=== PATIENT | male | born 1950 | race Caucasian/White ===

== ENCOUNTER 2018-04-29 18:56 | Inpatient (IN) | payer MEDICARE, OTHER ==
--- NOTE | 2018-04-29 22:02 | ULT ---
BILATERAL LOWER EXTREMITY VENOUS DUPLEX EXAM: 04/29/18 HISTORY: Bilateral lower extremity edema and redness. Real time color doppler evaluation of the right and left lower extremity was performed from groin to calf. This includes evaluation of the common femoral, superficial and profunda femoral, saphenous, po pliteal and trifurcation veins. This shows patent deep venous systems bilaterally. There is normal compressibility and augmentation. IMPRESSION: No evidence of DVT of either lower extremity. POS: MARY CARMEN
[2018-04-29] MEDS ORDERED: Piperacillin/Tazobactam 4.5 GM VIAL ONE (22:14)
[2018-04-29] MEDS ORDERED: Clindamycin/D5W 900 mg/50 ml Premix Bag ONE (22:14)
[2018-04-29] MEDS ORDERED: Sodium Chloride 0.9% 100 ML ONE (22:14)
[2018-04-29] MEDS ORDERED: Vancomycin HCl 1.5 GM in Sodium Chloride 0.9% 250 ML 300 ML IVPB SCH (22:15)
[2018-04-29 22:24] LABS: #Basophils 0.1 thou/uL (0.0-0.2); #Eosinphils 0.3 thou/uL (0.0-0.7); #Lymphocytes 1.5 thou/uL (1.20-3.40); #Monocytes 0.6 thou/uL (0.11-0.59); #Neutrophils 4.9 thou/uL (1.40-6.50); %Basophils 0.8 % (0.0-1.0); %Eosinophils 3.8 % (0.0-10.0); %Lymphocytes 20.6 % (21.0-51.0); %Monocytes 8.5 % (0.0-10.0); %Neutrophils 66.3 % (42.0-75.0); Hemoglobin 13.3 g/dL (14.0-18.0); Mean Corpuscular HGB CONC 33.3 g/dL (32.0-36.0); Mean Corpuscular Hemoglobin 29.1 pg (27.0-31.0); Mean Corpuscular Volume 87.4 fL (78.0-98.0); Mean Platelet Volume 6.9 fL (7.4-10.4); Platelet Count 237 thou/uL (130-400); RBC Distribution Width 13.2 % (11.5-14.5); Red Blood Cell (RBC) Count 4.57 mill/uL (4.70-6.10); White Blood Cell (WBC) Count 7.3 thou/uL (4.8-10.8)
[2018-04-29 22:44] LABS: ALT (SGPT) 12 U/L (8-55); AST (SGOT) 16 U/L (5-34); Albumin 4.7 g/dL (3.4-4.8); Alkaline Phosphatase 50 U/L (40-150); Anion Gap 15 mmol/L (10-20); BUN (Urea Nitrogen) 17 mg/dL (8.4-25.7); Bilirubin, Total 0.7 mg/dL (0.2-1.2); CK (CPK) 105 U/L (30-200); Calc. Creatinine Clearance 0 mL/min (70-130); Calcium 9.8 mg/dL (7.8-10.44); Carbon Dioxide 25 mmol/L (23-31); Chloride 103 mmol/L (98-107); Estimated GFR-MDRD Greater than 90; Globulin 2.4 g/dL (2.4-3.5); Glucose 120 mg/dL (80-115); Potassium 3.7 mmol/L (3.5-5.1); Protein, Total 7.1 g/dL (5.8-8.1); Sodium 139 mmol/L (136-145)
[2018-04-29 22:49] LABS: CKMB 1.7 ng/mL (0-6.6); Troponin I Less than 0.010 ng/mL (< 0.028)
[2018-04-30] MEDS ORDERED: Acetaminophen 325 MG TAB PO PRN ×2 (00:54→02:37)
[2018-04-30] MEDS ORDERED: Ondansetron HCl/PF 4 MG/2 ML Vial IVP PRN ×3 (00:54→02:37)
[2018-04-30] MEDS ORDERED: Ondansetron ODT 4 MG TAB SL PRN (00:54)
[2018-04-30 01:14] VITALS: BMI 31.1
[2018-04-30] MEDS: Sodium Chloride 0.9% 1,000 ML IV SCH ×2 (01:57→08:25)
[2018-04-30] MEDS ORDERED: HumaLOG 300 UNITS/3 ML VIAL SC PRN (02:02)
[2018-04-30] MEDS ORDERED: Dextrose 50% Abboject 50 ML SYRINGE SLOW IVP PRN (02:02)
[2018-04-30] MEDS ORDERED: Dextrose 5% in Water 1,000 ML IV PRN (02:02)
[2018-04-30] MEDS ORDERED: Nitroglycerin 0.4 MG TAB (25 Tab Bottle) SL PRN (02:37)
[2018-04-30] MEDS ORDERED: Benzonatate 100 MG CAP PO PRN (02:37)
[2018-04-30] MEDS ORDERED: traMADol HCl 50 MG TAB PO PRN (02:37)
[2018-04-30] MEDS ORDERED: cloNIDine 0.1 MG TAB PO PRN (02:37)
[2018-04-30] MEDS ORDERED: Mag-Al 1200 mg/1200 mg/30 ML UDCUP PO PRN (02:37)
[2018-04-30] MEDS ORDERED: Loratadine 10 MG TAB PO PRN (02:37)
[2018-04-30] MEDS ORDERED: Diabetic Tussin 200 MG/10 ML UDCUP PO PRN (02:37)
[2018-04-30] MEDS ORDERED: Bisacodyl 5 MG TAB PO PRN (02:37)
[2018-04-30] MEDS ORDERED: Senokot 8.6 MG TAB PO PRN (02:37)
[2018-04-30] MEDS ORDERED: Calcium Carbonate 500 MG ChewTAB PO PRN (02:37)
[2018-04-30] MEDS ORDERED: hydrALAZINE 20 MG/ML VIAL SLOW IVP PRN (02:37)
[2018-04-30 02:39] LABS: Lactic Acid 2.6 mmol/L (0.5-2.2)
--- NOTE | 2018-04-30 03:30 | HP ---
DATE OF ADMISSION: 04/30/2018 CHIEF COMPLAINT: Bilateral lower extremity rash and swelling. PRIMARY CARE PHYSICIAN: Gerardo Ridley M.D. HISTORY OF PRESENT ILLNESS: Mr. Lassiter is a very pleasant 68-year-old male with past medical histo ry of diabetes, hypertension, and dyslipidemia who presented to the emergency room with the above-men tioned complaint. History is mainly obtained by the patient himself and case has been discussed with admitting ER physician, Dr. Davis. The electronic medical records have been reviewed. The patient was last admitted in our facility in 05/2017 when he underwent a right total knee replacement Mr. Lassiter reports that he has been noticing bilateral lower extremity rash and swelling for the la st 2 weeks. He initially ignored it, but eventually presented to his primary care physician when the symptoms did not go away. It is itchy rash and has been spreading upwards from his feet. He was pr escribed doxycycline about a week ago and he took about 3 days of it, but the symptoms continued to g et worse, so he presented to the ER. In the emergency room, he was hemodynamically stable with a blood pressure of 152/79, pulse of 95, an d afebrile. His examination was consistent with significant bilateral lower extremity cellulitis and pitting edema. A lower extremity ultrasound was done which was negative for any DVT. He was diagno sed with cellulitis and was given clindamycin, vancomycin and Zosyn and is now being admitted for fur ther workup and care. He is otherwise hemodynamically stable and has no evidence of sepsis. PAST MEDICAL HISTORY: 1. Diabetes mellitus, noninsulin dependent. 2. Hypertension. 3. Dyslipidemia. 4. Benign prostatic hypertrophy. PAST SURGICAL HISTORY: 1. Bilateral inguinal hernia repair. 2. Bilateral cataract surgery. 3. Right total knee replacement in 05/2017. ALLERGIES: No known medication allergies. 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 He chews tobacco, but denies any alcohol or drug abuse. FAMILY HISTORY: Significant for diabetes in multiple family members. CURRENT MEDICATIONS: Januvia 50 mg daily, metformin 500 mg p.o. b.i.d., Flomax 0.4 mg daily, finaste ride 5 mg daily, benazepril/hydrochlorothiazide 20/12.5 mg daily, Lipitor 5 mg daily, aspirin 81 mg d aily, and amlodipine 10 mg daily. REVIEW OF SYSTEMS: Twelve-point review of systems was done and is negative except for those mentione d in the history and physical. LABORATORY DATA: CBC shows hemoglobin of 13.3, otherwise unremarkable. Serum chemistries unremarkab le. Blood sugar 120. Lactic acid 2.2. Cardiac enzymes and BNP normal. Lower extremity ultrasound is negative for any DVT bilaterally. PHYSICAL EXAMINATION: VITAL SIGNS: Most recent vital signs, temperature 97.9, pulse of 65, respirations 18, saturating 98% on room air, blood pressure 102/63. GENERAL: No acute distress, awake, alert, and oriented x3, very pleasant. HEENT: Mucous membrane is moist and pink. No oropharyngeal exudate or erythema. Head is normocepha lic, atraumatic. Pupils equal, reactive to light and accommodation. Extraocular movement intact. NECK: Neck is supple without any lymphadenopathy, JVD or bruit. CHEST: Clear to auscultation without any wheezing, rales or rhonchi. CARDIOVASCULAR: Rate and rhythm is regular without any murmurs, rubs, or gallops. ABDOMEN: Soft, nontender, nondistended, positive bowel sounds. EXTREMITIES: Extremities showed diffuse pitting edema extending mainly from his feet up words to the mid bailey. He has extensive maculopapular confluent rash involving the whole circumference of both l egs extending from just inside his toes to all the way almost up to his knees. It is warm to touch. He is nontender to palpation in his legs. Proximal streaking is noticed. NEUROLOGIC: Nonfocal. SKIN: As above in the bilateral lower extremities. Otherwise, negative for any other rash or bruise s. PSYCHIATRIC: Normal affect. IMPRESSION AND PLAN: 1. Bilateral lower extremity cellulitis. The patient has failed outpatient oral antibiotic therapy. He currently is not showing any signs and symptoms of sepsis, but worsening cellulitis. There is n o evidence of deep venous thrombosis. He will be admitted for IV antibiotic therapy. We will contin ue the vancomycin and Zosyn that he has received in the emergency room. Blood cultures have been obt ained and we will follow the results. He will approximately need IV antibiotics for at least 2-3 day s. Monitor clinical progress. 2. Diabetes mellitus type 2. We will hold the metformin for now and put him on insulin sliding scal e with frequent Accu-Cheks. A 2000 calorie ADA diet will be started as well. 3. History of hypertension. Resume his amlodipine, hydrochlorothiazide and benazepril. 4. History of dyslipidemia. We will restart his Lipitor. 5. Benign prostatic hypertrophy. Restart his Flomax and finasteride. 6. Code status: FULL CODE. Discussed with the patient. 7. Deep venous thrombosis and gastrointestinal prophylaxis. DISPOSITION: Mr. Lassiter is currently being admitted to the hospital with bilateral lower extremity cellulitis in a diabetic patient with failed outpatient antibiotic oral therapy. Estimated length o f stay at least 2-3 midnight. Further management will depend upon his clinical course.
[2018-04-30] MEDS ORDERED: Piperacillin/Tazobactam 4.5 GM in Sodium Chloride 0.9% 100 ML IVPB SCH (04:00)
[2018-04-30] MEDS: Piperacillin/Tazobactam 3.375 GM in Sodium Chloride 0.9% 100 ML IVPB SCH ×3 (05:38→17:38)
[2018-04-30] MEDS ORDERED: Clindamycin/D5W 900 MG in Premix Bag 1 BAG IVPB SCH (06:00)
[2018-04-30] MEDS: Tamsulosin HCl 0.4 MG CAP PO SCH (08:25)
[2018-04-30] MEDS: Alogliptin 6.25 MG TAB PO SCH (08:25)
[2018-04-30] MEDS: Enoxaparin Sodium 40 MG/0.4 ML SYRINGE SC SCH (08:25)
[2018-04-30] MEDS: Amlodipine 10 MG TAB PO SCH (08:26)
[2018-04-30] MEDS: Famotidine 20 MG TAB PO SCH ×2 (08:26→21:03)
[2018-04-30] MEDS: Atorvastatin Calcium 10 MG TAB PO SCH (08:26)
[2018-04-30] MEDS: Aspirin 81 mg Enteric Coated Tablet PO SCH (08:26)
[2018-04-30] MEDS: Finasteride 5 MG TAB PO SCH (08:26)
[2018-04-30] MEDS: Hydrochlorothiazide 25 MG TAB PO SCH (08:27)
[2018-04-30] MEDS ORDERED: Non-Formulary Item 1 EACH (Benazepril/Hydrochlorothiazide [Benazepril-Hctz 20-12.5 Mg Tab PO SCH (09:00)
[2018-04-30] MEDS: Vancomycin HCl 1.5 GM in Sodium Chloride 0.9% 250 ML 300 ML IVPB SCH ×2 (10:54→23:20)
[2018-04-30] MEDS ORDERED: Vancomycin HCl 1.5 GM in Sodium Chloride 0.9% 250 ML 300 ML IVPB SCH (11:00)
[2018-04-30] MEDS: HumaLOG 300 UNITS/3 ML VIAL SC PRN (13:20)
[2018-05-01] MEDS: Piperacillin/Tazobactam 3.375 GM in Sodium Chloride 0.9% 100 ML IVPB SCH ×4 (00:17→17:47)
[2018-05-01] MEDS ORDERED: Prevnar 13-Val Conj/PF 0.5 ML SYRINGE IM ONE (09:00)
[2018-05-01] MEDS: Atorvastatin Calcium 10 MG TAB PO SCH (09:14)
[2018-05-01] MEDS: Tamsulosin HCl 0.4 MG CAP PO SCH (09:14)
[2018-05-01] MEDS: Finasteride 5 MG TAB PO SCH (09:15)
[2018-05-01] MEDS: Hydrochlorothiazide 25 MG TAB PO SCH (09:16)
[2018-05-01] MEDS: Famotidine 20 MG TAB PO SCH ×2 (09:16→20:30)
[2018-05-01] MEDS: Alogliptin 6.25 MG TAB PO SCH (09:16)
[2018-05-01] MEDS: Amlodipine 10 MG TAB PO SCH (09:16)
[2018-05-01] MEDS: Aspirin 81 mg Enteric Coated Tablet PO SCH (09:16)
[2018-05-01] MEDS: Enoxaparin Sodium 40 MG/0.4 ML SYRINGE SC SCH (09:19)
[2018-05-01] MEDS: Vancomycin HCl 1.5 GM in Sodium Chloride 0.9% 250 ML 300 ML IVPB SCH (11:17)
[2018-05-01] MEDS: HumaLOG 300 UNITS/3 ML VIAL SC PRN (17:47)
--- NOTE | 2018-05-01 21:02 | PDOC.PN ---
- Subjective Encounter Start Date: 05/01/18 Encounter Start Time: 11:30 Subjective: pt up in bed no complains - Objective Vital Signs & Weight: Vital Signs (12 hours) Temp Pulse Resp BP BP BP Pulse Ox 05/01/18 20:00 97.9 F 75 18 108/72 93 L 05/01/18 12:04 98.4 F 61 16 123/80 94 L 05/01/18 09:16 66 119/67 05/01/18 09:15 119/76 Weight Weight 211 lb I&O: 04/30/18 05/01/18 05/02/18 06:59 06:59 06:59 Intake Total 575 1164 Balance 575 1164 Result Diagrams: 04/29/18 22:15 04/29/18 22:15 Additional Labs: Accuchecks 05/01/18 05/01/18 05/01/18 16:14 11:51 05:22 POC Glucose 192 H 139 H 123 H 04/30/18 20:29 POC Glucose 139 H Phys Exam - Physical Examination HEENT: PERRLA, moist MMs, sclera anicteric, TM's clear, oral pharynx no lesions , 2+ tonsils Neck: no nodes, no JVD, supple, full ROM Respiratory: no wheezing, no rales, no rhonchi, wheezing present, clear to auscultation bilateral Cardiovascular: RRR, no significant murmur, no rub, gallop, irregular Gastrointestinal: soft, non-tender, no distention, positive bowel sounds mild lower ext edema Dx/Plan (1) Bilateral lower leg cellulitis Code(s): L03.116 - CELLULITIS OF LEFT LOWER LIMB; L03.115 - CELLULITIS OF RIGHT LOWER LIMB Status: Acute (2) Anemia, normocytic normochromic Code(s): D64.9 - ANEMIA, UNSPECIFIED Status: Chronic (3) DM type 2 (diabetes mellitus, type 2) Status: Chronic - Plan will change abx to ceftriaxone -: will give one dose of lasix * . Review of Systems - Review of Systems ENT: negative: Ear Pain, Ear Discharge, Nose Pain, Nose Discharge, Nose Congestion, Mouth Pain, Mouth Swelling, Throat Pain, Throat Swelling, Other Respiratory: negative: Cough, Dry, Shortness of Breath, Hemoptysis, SOB with Excertion, Pleuritic Pain, Sputum, Wheezing Cardiovascular: negative: chest pain, palpitations, orthopnea, paroxysmal nocturnal dyspnea, edema, light headedness, other Gastrointestinal: negative: Nausea, Vomiting, Abdominal Pain, Diarrhea, Constipation, Melena, Hematochezia, Other - Medications/Allergies Allergies/Adverse Reactions: Allergies Allergy/AdvReac Type Severity Reaction Status Date / Time No Known Drug Allergies Allergy Verified 04/30/18 01:03 Medications: Current Medications Acetaminophen (Tylenol) 650 mg PO Q4H PRN PRN Reason: Headache/Fever or Pain Al Hydroxide/Mg Hydroxide (Maalox) 30 ml PO Q6H PRN PRN Reason: Heartburn or Indigestion Alogliptin Benzoate (Alogliptin) 12.5 mg PO DAILY [facility] Last Admin: 05/01/18 09:16 Dose: 12.5 mg Amlodipine Besylate (Norvasc) 10 mg PO DAILY [facility] Last Admin: 05/01/18 09:16 Dose: 10 mg Aspirin (Ecotrin) 81 mg PO DAILY [facility] Last Admin: 05/01/18 09:16 Dose: 81 mg Atorvastatin Calcium (Lipitor) 5 mg PO DAILY [facility] Last Admin: 05/01/18 09:14 Dose: 5 mg Benazepril HCl (Lotensin) 20 mg PO DAILY [facility] Last Admin: 05/01/18 09:15 Dose: 20 mg Benzonatate (Tessalon) 100 mg PO Q4H PRN PRN Reason: Cough Bisacodyl (Dulcolax) 10 mg PO DAILYPRN PRN PRN Reason: Constipation Calcium Carbonate (Tums) 1,000 mg PO Q4H PRN PRN Reason: Heartburn or Indigestion Clonidine (Catapres) 0.1 mg PO Q4H PRN PRN Reason: Systolic BP > 160 Dextrose/Water (Dextrose 50%) 25 gm SLOW IVP PRN PRN PRN Reason: Hypoglycemia Enoxaparin Sodium (Lovenox) 40 mg SC 0900 [facility] Last Admin: 05/01/18 09:19 Dose: 40 mg Famotidine (Pepcid) 20 mg PO BID [facility] Last Admin: 05/01/18 20:30 Dose: 20 mg Finasteride (Proscar) 5 mg PO DAILY [facility] Last Admin: 05/01/18 09:15 Dose: 5 mg Furosemide (Lasix) 40 mg SLOW IVP ONE [facility] Glucagon (Glucagon) 1 mg IM PRN PRN PRN Reason: Hypoglycemia Guaifenesin (Robitussin Sf) 200 mg PO Q4H PRN PRN Reason: Cough Hydralazine HCl (Apresoline) 10 mg SLOW IVP Q4H PRN PRN Reason: Systolic BP > 180 Hydrochlorothiazide (Hydrochlorothiazide) 12.5 mg PO DAILY [facility] Last Admin: 05/01/18 09:16 Dose: 12.5 mg Dextrose/Water (D5w) 1,000 mls @ 0 mls/hr IV .Q0M PRN; As Directed PRN Reason: Hypoglycemia Ceftriaxone Sodium 1 mg/ (Syringe) 0.01 mls @ 0 mls/hr IVPB Q24HR [facility] Insulin Human Lispro (Humalog) 0 units SC .MODERATE SLIDING SC PRN PRN Reason: Moderate Correctional Scale Last Admin: 05/01/18 17:47 Dose: 2 unit Insulin Human Lispro (Humalog) 0 units SC .BEDTIME SLIDING SC PRN PRN Reason: Bedtime Correctional Scale Loratadine (Claritin) 10 mg PO DAILYPRN PRN PRN Reason: Sinus Symptoms Miscellaneous Medication (Pharmacy To Dose) 0 each IVPB PRN PRN PRN Reason: [facility] Pharmacy to Dose Nitroglycerin (Nitrostat) 0.4 mg SL Q5MIN PRN PRN Reason: Chest Pain Ondansetron HCl (Zofran) 4 mg IVP Q6H PRN PRN Reason: Nausea/Vomiting Senna (Senokot) 2 tab PO HSPRN PRN PRN Reason: Constipation Sodium Chloride (Flush - Normal Saline) 10 ml IVF Q12HR [facility] Last Admin: 05/01/18 20:31 Dose: 10 ml Sodium Chloride (Flush - Normal Saline) 10 ml IVF PRN PRN PRN Reason: Saline Flush Tamsulosin HCl (Flomax) 0.4 mg PO DAILY [facility] Last Admin: 05/01/18 09:14 Dose: 0.4 mg Tramadol HCl (Ultram) 50 mg PO Q4H PRN PRN Reason: Moderate Pain (4-6) Triamcinolone Acetonide (Kenalog 0.1% Ointment) 0 gm TOP TID [facility] Last Admin: 05/01/18 20:31 Dose: 1 applic
--- NOTE | 2018-05-01 21:04 | PDOC.PN ---
- Subjective Encounter Start Date: 04/30/18 Encounter Start Time: 14:00 Subjective: pt up in chair no complains - Objective Vital Signs & Weight: Vital Signs (12 hours) Temp Pulse Resp BP BP BP Pulse Ox 05/01/18 20:00 97.9 F 75 18 108/72 93 L 05/01/18 12:04 98.4 F 61 16 123/80 94 L 05/01/18 09:16 66 119/67 05/01/18 09:15 119/76 Weight Weight 211 lb I&O: 04/30/18 05/01/18 05/02/18 06:59 06:59 06:59 Intake Total 575 1164 Balance 575 1164 Result Diagrams: 04/29/18 22:15 04/29/18 22:15 Additional Labs: Accuchecks 05/01/18 05/01/18 05/01/18 16:14 11:51 05:22 POC Glucose 192 H 139 H 123 H 04/30/18 20:29 POC Glucose 139 H Phys Exam - Physical Examination HEENT: PERRLA, moist MMs, sclera anicteric, TM's clear, oral pharynx no lesions , 2+ tonsils Neck: no nodes, no JVD, supple, full ROM Respiratory: no wheezing, no rales, no rhonchi, wheezing present, clear to auscultation bilateral Cardiovascular: RRR, no significant murmur, no rub, gallop, irregular Gastrointestinal: soft, non-tender, no distention, positive bowel sounds Musculoskeletal: edema present mild erythema to lower ext bilaterally Dx/Plan (1) Bilateral lower leg cellulitis Code(s): L03.116 - CELLULITIS OF LEFT LOWER LIMB; L03.115 - CELLULITIS OF RIGHT LOWER LIMB Status: Acute (2) Anemia, normocytic normochromic Code(s): D64.9 - ANEMIA, UNSPECIFIED Status: Chronic (3) DM type 2 (diabetes mellitus, type 2) Status: Chronic - Plan will continue abx for now -: continue sliding scale insulin * . Review of Systems - Review of Systems Respiratory: negative: Cough, Dry, Shortness of Breath, Hemoptysis, SOB with Excertion, Pleuritic Pain, Sputum, Wheezing Cardiovascular: negative: chest pain, palpitations, orthopnea, paroxysmal nocturnal dyspnea, edema, light headedness, other Gastrointestinal: negative: Nausea, Vomiting, Abdominal Pain, Diarrhea, Constipation, Melena, Hematochezia, Other - Medications/Allergies Allergies/Adverse Reactions: Allergies Allergy/AdvReac Type Severity Reaction Status Date / Time No Known Drug Allergies Allergy Verified 04/30/18 01:03 Medications: Current Medications Acetaminophen (Tylenol) 650 mg PO Q4H PRN PRN Reason: Headache/Fever or Pain Al Hydroxide/Mg Hydroxide (Maalox) 30 ml PO Q6H PRN PRN Reason: Heartburn or Indigestion Alogliptin Benzoate (Alogliptin) 12.5 mg PO DAILY [facility] Last Admin: 05/01/18 09:16 Dose: 12.5 mg Amlodipine Besylate (Norvasc) 10 mg PO DAILY [facility] Last Admin: 05/01/18 09:16 Dose: 10 mg Aspirin (Ecotrin) 81 mg PO DAILY [facility] Last Admin: 05/01/18 09:16 Dose: 81 mg Atorvastatin Calcium (Lipitor) 5 mg PO DAILY [facility] Last Admin: 05/01/18 09:14 Dose: 5 mg Benazepril HCl (Lotensin) 20 mg PO DAILY [facility] Last Admin: 05/01/18 09:15 Dose: 20 mg Benzonatate (Tessalon) 100 mg PO Q4H PRN PRN Reason: Cough Bisacodyl (Dulcolax) 10 mg PO DAILYPRN PRN PRN Reason: Constipation Calcium Carbonate (Tums) 1,000 mg PO Q4H PRN PRN Reason: Heartburn or Indigestion Clonidine (Catapres) 0.1 mg PO Q4H PRN PRN Reason: Systolic BP > 160 Dextrose/Water (Dextrose 50%) 25 gm SLOW IVP PRN PRN PRN Reason: Hypoglycemia Enoxaparin Sodium (Lovenox) 40 mg SC 0900 [facility] Last Admin: 05/01/18 09:19 Dose: 40 mg Famotidine (Pepcid) 20 mg PO BID [facility] Last Admin: 05/01/18 20:30 Dose: 20 mg Finasteride (Proscar) 5 mg PO DAILY [facility] Last Admin: 05/01/18 09:15 Dose: 5 mg Furosemide (Lasix) 40 mg SLOW IVP ONE [facility] Glucagon (Glucagon) 1 mg IM PRN PRN PRN Reason: Hypoglycemia Guaifenesin (Robitussin Sf) 200 mg PO Q4H PRN PRN Reason: Cough Hydralazine HCl (Apresoline) 10 mg SLOW IVP Q4H PRN PRN Reason: Systolic BP > 180 Hydrochlorothiazide (Hydrochlorothiazide) 12.5 mg PO DAILY [facility] Last Admin: 05/01/18 09:16 Dose: 12.5 mg Dextrose/Water (D5w) 1,000 mls @ 0 mls/hr IV .Q0M PRN; As Directed PRN Reason: Hypoglycemia Ceftriaxone Sodium 1 mg/ (Syringe) 0.01 mls @ 0 mls/hr IVPB Q24HR [facility] Insulin Human Lispro (Humalog) 0 units SC .MODERATE SLIDING SC PRN PRN Reason: Moderate Correctional Scale Last Admin: 05/01/18 17:47 Dose: 2 unit Insulin Human Lispro (Humalog) 0 units SC .BEDTIME SLIDING SC PRN PRN Reason: Bedtime Correctional Scale Loratadine (Claritin) 10 mg PO DAILYPRN PRN PRN Reason: Sinus Symptoms Miscellaneous Medication (Pharmacy To Dose) 0 each IVPB PRN PRN PRN Reason: [facility] Pharmacy to Dose Nitroglycerin (Nitrostat) 0.4 mg SL Q5MIN PRN PRN Reason: Chest Pain Ondansetron HCl (Zofran) 4 mg IVP Q6H PRN PRN Reason: Nausea/Vomiting Senna (Senokot) 2 tab PO HSPRN PRN PRN Reason: Constipation Sodium Chloride (Flush - Normal Saline) 10 ml IVF Q12HR [facility] Last Admin: 05/01/18 20:31 Dose: 10 ml Sodium Chloride (Flush - Normal Saline) 10 ml IVF PRN PRN PRN Reason: Saline Flush Tamsulosin HCl (Flomax) 0.4 mg PO DAILY [facility] Last Admin: 05/01/18 09:14 Dose: 0.4 mg Tramadol HCl (Ultram) 50 mg PO Q4H PRN PRN Reason: Moderate Pain (4-6) Triamcinolone Acetonide (Kenalog 0.1% Ointment) 0 gm TOP TID [facility] Last Admin: 05/01/18 20:31 Dose: 1 applic
[2018-05-01] MEDS ORDERED: cefTRIAXone\\ROCEPHIN 1 GM in Sodium Chloride 0.9% 100 ML IVPB SCH (22:00)
[2018-05-01 23:34] LABS: Vancomycin, Trough 15.6 ug/mL
[2018-05-02 05:04] LABS: #Basophils 0.1 thou/uL (0.0-0.2); #Eosinphils 0.9 thou/uL (0.0-0.7); #Lymphocytes 1.4 thou/uL (1.20-3.40); #Monocytes 0.6 thou/uL (0.11-0.59); #Neutrophils 3.7 thou/uL (1.40-6.50); %Basophils 0.9 % (0.0-1.0); %Eosinophils 13.4 % (0.0-10.0); %Lymphocytes 21.7 % (21.0-51.0); %Monocytes 8.6 % (0.0-10.0); %Neutrophils 55.4 % (42.0-75.0); Hemoglobin 13.3 g/dL (14.0-18.0); Mean Corpuscular HGB CONC 33.2 g/dL (32.0-36.0); Mean Corpuscular Volume 87.2 fL (78.0-98.0); Mean Platelet Volume 7.2 fL (7.4-10.4); Platelet Count 222 thou/uL (130-400); White Blood Cell (WBC) Count 6.6 thou/uL (4.8-10.8)
[2018-05-02 05:16] LABS: Anion Gap 14 mmol/L (10-20); BUN (Urea Nitrogen) 10 mg/dL (8.4-25.7); Calc. Creatinine Clearance 128 mL/min (70-130); Calcium 9.7 mg/dL (7.8-10.44); Carbon Dioxide 24 mmol/L (23-31); Chloride 105 mmol/L (98-107); Estimated GFR-MDRD Greater than 90; Glucose 126 mg/dL (80-115); Potassium 3.9 mmol/L (3.5-5.1); Sodium 139 mmol/L (136-145)
[2018-05-02] MEDS ORDERED: Furosemide 40 MG/4 ML VIAL SLOW IVP SCH (06:00)
[2018-05-02] MEDS: Hydrochlorothiazide 25 MG TAB PO SCH (08:40)
[2018-05-02] MEDS: Finasteride 5 MG TAB PO SCH (08:41)
[2018-05-02] MEDS: Aspirin 81 mg Enteric Coated Tablet PO SCH (08:41)
[2018-05-02] MEDS: Alogliptin 6.25 MG TAB PO SCH (08:41)
[2018-05-02] MEDS: Atorvastatin Calcium 10 MG TAB PO SCH (08:41)
[2018-05-02] MEDS: Amlodipine 10 MG TAB PO SCH (08:41)
[2018-05-02] MEDS: Tamsulosin HCl 0.4 MG CAP PO SCH (08:42)
[2018-05-02] MEDS: Enoxaparin Sodium 40 MG/0.4 ML SYRINGE SC SCH (08:43)
[2018-05-02] MEDS: Famotidine 20 MG TAB PO SCH ×2 (08:45→20:07)
--- NOTE | 2018-05-02 16:01 | PDOC.PN ---
- Subjective Encounter Start Date: 05/02/18 Encounter Start Time: 11:30 Subjective: pt up in bed feels better today - Objective Vital Signs & Weight: Vital Signs (12 hours) Temp Pulse Resp BP BP Pulse Ox 05/02/18 08:42 130/80 05/02/18 08:41 66 130/80 05/02/18 08:00 97.7 F 66 16 05/02/18 07:20 97.7 F 66 16 130/80 96 Weight Weight 211 lb I&O: 05/01/18 05/02/18 05/03/18 06:59 06:59 06:59 Intake Total 1164 100 480 Balance 1164 100 480 Result Diagrams: 05/02/18 04:43 05/02/18 04:43 Additional Labs: Accuchecks 05/02/18 05/02/18 05/01/18 11:40 04:29 20:29 POC Glucose 124 H 122 H 123 H 05/01/18 16:14 POC Glucose 192 H Phys Exam - Physical Examination HEENT: PERRLA, moist MMs, sclera anicteric, TM's clear, oral pharynx no lesions , 2+ tonsils Neck: no nodes, no JVD, supple, full ROM Respiratory: no wheezing, no rales, no rhonchi, wheezing present, clear to auscultation bilateral Cardiovascular: RRR, no significant murmur, no rub, gallop, irregular Musculoskeletal: edema present mild erythema to lower ext worse today compared to yestarday Dx/Plan (1) Bilateral lower leg cellulitis Code(s): L03.116 - CELLULITIS OF LEFT LOWER LIMB; L03.115 - CELLULITIS OF RIGHT LOWER LIMB Status: Acute (2) Anemia, normocytic normochromic Code(s): D64.9 - ANEMIA, UNSPECIFIED Status: Chronic (3) DM type 2 (diabetes mellitus, type 2) Status: Chronic - Plan will continue ceftriaxone for now will increase dose to 2gm -: will give another dose of lasix darren -: will add claritin today * . Review of Systems - Review of Systems Respiratory: negative: Cough, Dry, Shortness of Breath, Hemoptysis, SOB with Excertion, Pleuritic Pain, Sputum, Wheezing Cardiovascular: negative: chest pain, palpitations, orthopnea, paroxysmal nocturnal dyspnea, edema, light headedness, other Gastrointestinal: negative: Nausea, Vomiting, Abdominal Pain, Diarrhea, Constipation, Melena, Hematochezia, Other Genitourinary: negative: Dysuria, Frequency, Incontinence, Hematuria, Retention , Other - Medications/Allergies Allergies/Adverse Reactions: Allergies Allergy/AdvReac Type Severity Reaction Status Date / Time No Known Drug Allergies Allergy Verified 04/30/18 01:03 Medications: Current Medications Acetaminophen (Tylenol) 650 mg PO Q4H PRN PRN Reason: Headache/Fever or Pain Al Hydroxide/Mg Hydroxide (Maalox) 30 ml PO Q6H PRN PRN Reason: Heartburn or Indigestion Alogliptin Benzoate (Alogliptin) 12.5 mg PO DAILY [facility] Last Admin: 05/02/18 08:41 Dose: 12.5 mg Amlodipine Besylate (Norvasc) 10 mg PO DAILY [facility] Last Admin: 05/02/18 08:41 Dose: 10 mg Aspirin (Ecotrin) 81 mg PO DAILY [facility] Last Admin: 05/02/18 08:41 Dose: 81 mg Atorvastatin Calcium (Lipitor) 5 mg PO DAILY [facility] Last Admin: 05/02/18 08:41 Dose: 5 mg Benazepril HCl (Lotensin) 20 mg PO DAILY [facility] Last Admin: 05/02/18 08:42 Dose: 20 mg Benzonatate (Tessalon) 100 mg PO Q4H PRN PRN Reason: Cough Bisacodyl (Dulcolax) 10 mg PO DAILYPRN PRN PRN Reason: Constipation Calcium Carbonate (Tums) 1,000 mg PO Q4H PRN PRN Reason: Heartburn or Indigestion Clonidine (Catapres) 0.1 mg PO Q4H PRN PRN Reason: Systolic BP > 160 Dextrose/Water (Dextrose 50%) 25 gm SLOW IVP PRN PRN PRN Reason: Hypoglycemia Enoxaparin Sodium (Lovenox) 40 mg SC 0900 [facility] Last Admin: 05/02/18 08:43 Dose: 40 mg Famotidine (Pepcid) 20 mg PO BID [facility] Last Admin: 05/02/18 08:45 Dose: 20 mg Finasteride (Proscar) 5 mg PO DAILY [facility] Last Admin: 05/02/18 08:41 Dose: 5 mg Glucagon (Glucagon) 1 mg IM PRN PRN PRN Reason: Hypoglycemia Guaifenesin (Robitussin Sf) 200 mg PO Q4H PRN PRN Reason: Cough Hydralazine HCl (Apresoline) 10 mg SLOW IVP Q4H PRN PRN Reason: Systolic BP > 180 Hydrochlorothiazide (Hydrochlorothiazide) 12.5 mg PO DAILY [facility] Last Admin: 05/02/18 08:40 Dose: 12.5 mg Dextrose/Water (D5w) 1,000 mls @ 0 mls/hr IV .Q0M PRN; As Directed PRN Reason: Hypoglycemia Ceftriaxone Sodium 2 mg/ (Syringe) 0.02 mls @ 0 mls/hr IVPB Q24HR [facility] Insulin Human Lispro (Humalog) 0 units SC .MODERATE SLIDING SC PRN PRN Reason: Moderate Correctional Scale Last Admin: 05/01/18 17:47 Dose: 2 unit Insulin Human Lispro (Humalog) 0 units SC .BEDTIME SLIDING SC PRN PRN Reason: Bedtime Correctional Scale Loratadine (Claritin) 10 mg PO DAILYPRN PRN PRN Reason: Sinus Symptoms Loratadine (Claritin) 10 mg PO DAILY [facility] Miscellaneous Medication (Pharmacy To Dose) 0 each IVPB PRN PRN PRN Reason: [facility] Pharmacy to Dose Nitroglycerin (Nitrostat) 0.4 mg SL Q5MIN PRN PRN Reason: Chest Pain Ondansetron HCl (Zofran) 4 mg IVP Q6H PRN PRN Reason: Nausea/Vomiting Senna (Senokot) 2 tab PO HSPRN PRN PRN Reason: Constipation Sodium Chloride (Flush - Normal Saline) 10 ml IVF Q12HR [facility] Last Admin: 05/02/18 08:42 Dose: 10 ml Sodium Chloride (Flush - Normal Saline) 10 ml IVF PRN PRN PRN Reason: Saline Flush Tamsulosin HCl (Flomax) 0.4 mg PO DAILY [facility] Last Admin: 05/02/18 08:42 Dose: 0.4 mg Tramadol HCl (Ultram) 50 mg PO Q4H PRN PRN Reason: Moderate Pain (4-6) Triamcinolone Acetonide (Kenalog 0.1% Ointment) 0 gm TOP TID [facility] Last Admin: 05/02/18 14:18 Dose: 1 applic
[2018-05-02] MEDS: HumaLOG 300 UNITS/3 ML VIAL SC PRN (17:47)
[2018-05-02] MEDS ORDERED: cefTRIAXone\\ROCEPHIN 2 GM in Sodium Chloride 0.9% 100 ML IVPB SCH (22:00)
[2018-05-03 07:57] VITALS: BP 138/80; TEMP 97.8
[2018-05-03] MEDS ORDERED: Loratadine 10 MG TAB PO SCH (09:00)
[2018-05-03] MEDS: Alogliptin 6.25 MG TAB PO SCH (09:45)
[2018-05-03] MEDS: Atorvastatin Calcium 10 MG TAB PO SCH (09:45)
[2018-05-03] MEDS: Hydrochlorothiazide 25 MG TAB PO SCH (09:46)
[2018-05-03] MEDS: Finasteride 5 MG TAB PO SCH (09:46)
[2018-05-03] MEDS: Tamsulosin HCl 0.4 MG CAP PO SCH (09:46)
[2018-05-03] MEDS: Famotidine 20 MG TAB PO SCH (09:46)
[2018-05-03] MEDS: Aspirin 81 mg Enteric Coated Tablet PO SCH (09:46)
[2018-05-03] MEDS: Amlodipine 10 MG TAB PO SCH (09:47)
[2018-05-03] MEDS: Enoxaparin Sodium 40 MG/0.4 ML SYRINGE SC SCH (09:48)
--- NOTE | 2018-05-05 02:26 | DIS ---
DATE OF ADMISSION: 04/30/2018 DATE OF DISCHARGE: 05/03/2018 DISCHARGE DIAGNOSES: 1. Bilateral lower extremity cellulitis, possibly superimposed with allergic component. 2. Anemia, normocytic, normochromic. 3. Diabetes type 2. HOSPITAL COURSE: Patient is a very pleasant 68-year-old male who initially presented to the hospital with complaints of bilateral lower extremity edema and erythema for the past 2 weeks. [place] goes out wearing shorts and clogs, which are not completely cover his feet, f eeding his chickens and his dogs also has been lawn mowing outside noticed started having lower extre mity itching, initially starting with the feet going up all the way up to his legs. Patient stated t hat at home he tried to use Benadryl and some calamine lotion, however, did not help. His PCP prescr ibed him some steroid cream also given oral steroids and put him on doxycycline. Patient took the st eroids, however, did not take any antibiotics and came into the ER since his lower extremity started to swell and his erythema worsened. Patient initially was put on broad spectrum antibiotics. His CR P and ESR were completely normal. He had no WBCs. The patient did have improving of erythema over t he hospital course. He did have lower extremity Dopplers, which were negative for any deep vein thro mbosis. Patient continued to improve; however, he did have some itching to his lower extremities. H e was ordered some Claritin and also some triamcinolone cream to his lower extremities. The patient was given 2 doses of diuretics for bilateral lower extremity edema. The patient improved and was dis charged home to follow up with PCP and possible even Dermatology since this was felt to be most likel y an allergic component. The patient stated that he had started using a new detergent and did have s ome other rash-like symptoms on his left arm and his lower abdominal area. DISCHARGE MEDICATIONS: As of the following: He will be going back to Januvia 50 mg daily, metformin 500 mg b.i.d., Flomax 0.4 mg daily, finasteride 5 mg daily, benazepril hydrochlorothiazide 1 p.o. da sugar, atorvastatin 5 mg daily, aspirin 81 mg daily, Norvasc 10 mg daily, triamcinolone 80 grams topica l t.i.d. to bilateral extremities, Claritin 10 mg daily. He has not taken any of his antibiotics, so we will continue doxycycline 100 mg b.i.d. for 7 days. Again, he was asked to follow up with his PC P and also Dermatology since this was felt to be an allergic component. PHYSICAL EXAMINATION: VITAL SIGNS: Temperature of 97.7, 73, 18, 97% on room air, blood pressure is 138/80. GENERAL: He is awake, alert, oriented x3, does not appear in distress. CARDIOVASCULAR: S1, S2 present. No murmurs, rubs or gallops. ABDOMEN: Soft, nontender, bowel sounds present. EXTREMITIES: No edema. Pedal pulse present x2. He does have mild erythema to bilateral lower extre mity, which has improved dramatically from his admission and mild lower extremity edema.
== END 2018-05-03 18:08 | disposition home or self-care (01) | DRG 603 ==
LOC: ERS 18:56 → T4-B 04-30 00:52
PROVIDERS: ADMIT Internal Medicine; ATTEND Internal Medicine
PROC: B50 Imaging, Veins, Plain Radiography (ICD-10-PCS; principal; 2018-04-30)
DX: L03.116 Cellulitis of left lower limb (principal); L03.115 Cellulitis of right lower limb; D64.9 Anemia, unspecified; E11.9 Type 2 diabetes mellitus without complications; I10 Essential (primary) hypertension; E78.5 Hyperlipidemia, unspecified
CPT/HCPCS: 36415; 36416; 80048; 80053; 80202; 82550; 82553; 83605; 83880; 84484; 85025; 85652; 86140; 87040; 93970; 96365; 96367; A4216; G8978-GP-CH; G8979-GP-CH; G8980-GP-CH; G8987-GO-CI; G8988-GO-CI; G8989-GO-CI; J0696; J1650; J1940; J2543; J3370; J3490; J7050

== ENCOUNTER 2023-06-11 17:29 | Emergency (ER) | payer MEDICARE, OTHER ==
[2023-06-11] MEDS ORDERED: Dexameth. Sod Phosp. 10 MG/ML (CHEMO USE ONLY) ONE (17:49)
== END 2023-06-11 17:58 | disposition home or self-care (01) ==
LOC: ERS 17:29
DX: L03.211 Cellulitis of face (principal); I10 Essential (primary) hypertension; E11.9 Type 2 diabetes mellitus without complications; E78.00 Pure hypercholesterolemia, unspecified; F17.220 Nicotine dependence, chewing tobacco, uncomplicated
CPT/HCPCS: 96372; 99282; J1100